=== PATIENT | male | born 1955 | race Caucasian/White ===

== ENCOUNTER 2017-11-05 10:19 | Emergency (ER) | payer BC ==
[2017-11-05] MEDS ORDERED: HYDROCHLOROTHIAZIDE 25 MG TABLET PO ONE (10:38)
--- NOTE | 2017-11-05 10:39 | ER Document Report ---
ED General - General Chief Complaint: Dizziness Stated Complaint: DIZZINESS Time Seen by Provider: 11/05/17 10:36 TRAVEL OUTSIDE OF THE [place] IN LAST 30 DAYS: No - HPI Notes: 3 or 4 months of "feeling shaky". Patient describes it as dizziness but is not room spinning he feels his head is foggy. Patient has been off of his blood pressure medication for 3 or 4 months. Denies chest pain, shortness of breath, cough, nausea, vomiting. States he did not want to go to work today feeling like this because he knows his coworkers would make him come in and get checked out. Patient does not recall what blood pressure medications he was on. Does not have a family doctor in the community. - Related Data Allergies/Adverse Reactions: No Known Allergies Allergy (Verified 11/05/17 10:20) Past Medical History - Social History Smoking Status: Unknown if Ever Smoked Family History: Reviewed & Not Pertinent Review of Systems - Review of Systems Notes: REVIEW OF SYSTEMS: CONSTITUTIONAL: -fevers, -chills EENT: -eye pain, -difficulty swallowing, -nasal congestion CARDIOVASCULAR: -chest pain, -syncope. RESPIRATORY: -cough, -SOB GASTROINTESTINAL: -abdominal pain, -nausea, -vomiting, -diarrhea GENITOURINARY: -dysuria, -hematuria MUSCULOSKELETAL: -back pain, -neck pain SKIN: -rash or skin lesions. HEMATOLOGIC: -easy bruising or bleeding. LYMPHATIC: -swollen, enlarged glands. NEUROLOGICAL: -altered mental status or loss of consciousness, -headache, - neurologic symptoms PSYCHIATRIC: -anxiety, -depression. ALL OTHER SYSTEMS REVIEWED AND NEGATIVE. Physical Exam - Vital signs Vitals: Temp Pulse Resp BP Pulse Ox 97.5 F 70 24 H 176/105 H 97 11/05/17 10:25 11/05/17 10:25 11/05/17 10:25 11/05/17 10:25 11/05/17 10:25 - Notes Notes: PHYSICAL EXAMINATION: GENERAL: Well-appearing, well-nourished and in no acute distress. HEAD: Atraumatic, normocephalic. EYES: Pupils equal round and reactive to light, extraocular movements intact, sclera anicteric, conjunctiva are normal. ENT: nares patent, oropharynx clear without exudates. Moist mucous membranes. NECK: Normal range of motion, supple without lymphadenopathy LUNGS: Breath sounds clear to auscultation bilaterally and equal. No wheezes rales or rhonchi. HEART: Regular rate and rhythm without murmurs ABDOMEN: Soft, nontender, normoactive bowel sounds. No guarding, no rebound. No masses appreciated. EXTREMITIES: Normal range of motion, no pitting or edema. No cyanosis. NEUROLOGICAL: Cranial nerves grossly intact. Normal speech, normal gait. Normal sensory and motor exams. PSYCH: Normal mood, normal affect. SKIN: Warm, Dry, normal turgor, no rashes or lesions noted. Course - Re-evaluation Re-evalutation: 11/05/17 10:39 Well-appearing man with long-standing uncontrolled hypertension presents hypertensive with vague complaints. Nothing changed from yesterday to today. No new his coworkers had "been riding him" We will check CBC, BMP, renal function endorgan damage, troponin, EKG. 11/05/17 12:27 Tentative lab workup unremarkable, long-standing benign symptoms during physical exam negative troponin. Initiate blood pressure control in the department with initial dose of hydrochlorothiazide. Consult local cardiology. They recommend outpatient referral [facility] referral line. Placed by myself with all patients number they will contact him later today. - Vital Signs Vital signs: Temp Pulse Resp BP Pulse Ox 97.5 F 70 24 H 176/105 H 97 11/05/17 10:25 11/05/17 10:25 11/05/17 10:25 11/05/17 10:25 11/05/17 10:25 - Laboratory Result Diagrams: 11/05/17 10:53 11/05/17 10:53 Laboratory results interpreted by me: 11/05/17 10:53 Hgb 17.6 H Hct 51.3 H MCV 98 H MCH 33.5 H - EKG Interpretation by Me Additional EKG results interpreted by me: 11/05/17 11:15 Normal sinus rhythm, 89 bpm, bigeminy noted. Normal QRS, no pathologic T-wave inversions, no ST elevations. Discharge - Discharge Clinical Impression: Hypertension Qualifiers: Hypertension type: essential hypertension Qualified Code(s): I10 - Essential ( primary) hypertension Condition: Stable Instructions: High Blood Pressure ([facility]) Referrals: [facility] [NO LOCAL MD] - Follow up as needed
[2017-11-05 11:19] LABS: ABSOLUTE BASOPHILS # (AUTO) 0.1 10^3/uL (0.0-0.2); ABSOLUTE EOSINOPHILS # (AUTO) 0.1 10^3/uL (0.0-0.6); ABSOLUTE LYMPHOCYTES (AUTO) 1.5 10^3/uL (0.5-4.7); ABSOLUTE MONOCYTES (AUTO) 0.7 10^3/uL (0.1-1.4); ABSOLUTE NEUT (AUTO) 4.9 10^3/uL (1.7-8.2); BASOPHILS % (AUTO) 1.4 % (0-2); EOSINOPHILS % (AUTO) 1.3 % (0-6); HEMATOCRIT 51.3 % (37.9-51.0); HEMOGLOBIN 17.6 g/dL (13.5-17.0); LYMPHOCYTES % (AUTO) 20.5 % (13-45); MEAN CORPUSCULAR HEMOGLOBIN 33.5 pg (27.0-33.4); MEAN CORPUSCULAR HGB CONC 34.2 g/dL (32.0-36.0); MEAN CORPUSCULAR VOLUME 98 fl (80-97); MONOCYTES % (AUTO) 9.3 % (3-13); PLATELET COUNT 255 10^3/uL (150-450); RED BLOOD COUNT 5.24 10^6/uL (4.35-5.55); RED CELL DISTRIBUTION WIDTH 13.3 % (11.5-14.0); SEGMENTED NEUTROPHILS % (AUTO) 67.5 % (42-78); TOTAL CELLS COUNTED % (AUTO) 100 %; WHITE BLOOD COUNT 7.2 10^3/uL (4.0-10.5)
[2017-11-05 11:32] LABS: APPEARANCE,URINE CLEAR; BILIRUBIN,URINE NEGATIVE (NEGATIVE); COLOR,URINE YELLOW; GLUCOSE, URINE NEGATIVE (NEGATIVE); KETONES,URINE NEGATIVE (NEGATIVE); LEUKOCYTE ESTERASE,URINE NEGATIVE (NEGATIVE); NITRITE,URINE NEGATIVE (NEGATIVE); PROTEIN,URINE NEGATIVE (NEGATIVE); URINE SPECIFIC GRAVITY 1.018; UROBILINOGEN,URINE NEGATIVE mg/dL (<2.0)
[2017-11-05 11:42] LABS: ANION GAP 12 (5-19); BLOOD UREA NITROGEN 13 mg/dL (7-20); CALCIUM 9.6 mg/dL (8.4-10.2); CARBON DIOXIDE 24 mmol/L (22-30); CHLORIDE 107 mmol/L (98-107); GLUCOSE 81 mg/dL (75-110); POTASSIUM 4.6 mmol/L (3.6-5.0); SODIUM 143.3 mmol/L (137-145)
[2017-11-05 11:49] LABS: ADD MANUAL MICROSCOPIC YES
[2017-11-05 11:51] LABS: BACTERIA,URINE TRACE /HPF
[2017-11-05 13:12] VITALS: BP 167/92
--- NOTE | 2017-11-05 19:59 | EKG REPORT ---
SEVERITY:- ABNORMAL ECG - SINUS RHYTHM VENTRICULAR BIGEMINY BORDERLINE LEFT AXIS DEVIATION SHORT QT INTERVAL : Confirmed by: Rea Espinal MD 05-Nov-2017 19:59:01
== END 2017-11-05 13:09 | disposition home or self-care (01) ==
LOC: ER 10:19
DX: I10 Essential (primary) hypertension (principal); R42 Dizziness and giddiness
CPT/HCPCS: 36415; 80048; 81001; 84484; 85025; 93005; 93010; 99284